=== PATIENT | female | born 1985 | race Caucasian/White ===

== ENCOUNTER 2024-05-13 22:42 | Emergency (ER) | payer OTHER ==
[2024-05-13 22:50] VITALS: BP 131/85; PULSE 87; RESP 20; TEMP 97.7; BMI 28.3
[2024-05-13] MEDS ORDERED: LIDOCAINE 5% TOPICAL PATCH ONE (23:24)
[2024-05-13] MEDS ORDERED: ACETAMINOPHEN 500 MG TABLET (FP) ONE (23:26)
[2024-05-13] MEDS: LIDOCAINE 5% TOPICAL PATCH TP ONE (23:30)
[2024-05-13] MEDS: ACETAMINOPHEN 500 MG TABLET (FP) PO ONE (23:31)
[2024-05-13] MEDS: LIDOCAINE PATCH REMOVAL MC SCH (23:31)
[2024-05-14] MEDS ORDERED: KETOROLAC TROMETHAMINE 30 MG/1 ML VIAL ONE (00:06)
[2024-05-14] MEDS: KETOROLAC TROMETHAMINE 30 MG/1 ML VIAL IM ONE (00:15)
== END 2024-05-14 00:37 | disposition home or self-care (01) ==
LOC: JER 22:42
PROC: 3E0233Z Introduction of Anti-inflammatory into Muscle, Percutaneous Approach (ICD-10-PCS; principal; 2024-05-13)
DX: M62.838 Other muscle spasm (principal); M54.2 Cervicalgia
CPT/HCPCS: 99284-25

== ENCOUNTER 2024-07-24 03:19 | Emergency (ER) | payer OTHER ==
[2024-07-24 03:24] VITALS: BP 125/76; PULSE 93; RESP 16; TEMP 98.1; BMI 26.9
== END 2024-07-24 04:33 | disposition home or self-care (01) ==
LOC: JER 03:19
DX: H93.12 Tinnitus, left ear (principal)
CPT/HCPCS: 99282-25

== ENCOUNTER 2024-10-07 07:05 | Day surgery (SDC) | payer OTHER ==
[2024-10-05 13:43] VITALS: BMI 27.4
[2024-10-07] MEDS ORDERED: ACETAMINOPHEN 500 MG TABLET (FP) PO PRN (09:09)
[2024-10-07 09:52] VITALS: RESP 20
[2024-10-07] MEDS: DEXAMETHASONE SOD PHOSPHATE 10 MG/1 ML VIAL IVPUSH ONE ×3 (10:47)
[2024-10-07] MEDS: LIDOCAINE HCL 1% PRESERVATIVE FREE - 30ML VIAL IJ ONE ×2 (10:47)
[2024-10-07] MEDS: IOHEXOL 180 MG/1 ML ML IJ ONE ×3 (10:47)
[2024-10-07 11:30] VITALS: BP 107/66; PULSE 98; TEMP 97.5
== END 2024-10-07 12:10 | disposition home or self-care (01) ==
LOC: JASU-SURG 07:05
PROVIDERS: ATTEND Pain Medicine Pain Medicine
PROC: 3E0R3BZ Introduction of Anesthetic Agent into Spinal Canal, Percutaneous Approach (ICD-10-PCS; 2024-10-07)
PROC: 3E0R33Z Introduction of Anti-inflammatory into Spinal Canal, Percutaneous Approach (ICD-10-PCS; principal; 2024-10-07 10:30)
DX: M54.12 Radiculopathy, cervical region (principal)
CPT/HCPCS: 76000-TC-FY; 81025; J1100

== ENCOUNTER 2025-01-21 06:13 | Day surgery (SDC) | payer OTHER ==
[2025-01-21] MEDS ORDERED: LIDOCAINE HCL/PF 1% SDV 5ML VIAL ONE (07:17)
[2025-01-21] MEDS ORDERED: BUPIVACAINE HCL/PF 0.5% (5MG/ML) 10 ML VIAL ONE (07:17)
[2025-01-21 12:49] VITALS: RESP 18
[2025-01-21 15:55] VITALS: BP 123/72; PULSE 86; TEMP 97.7
== END 2025-01-21 13:05 | disposition home or self-care (01) ==
LOC: JASU-SURG 06:13
PROVIDERS: ATTEND Pain Medicine Pain Medicine
PROC: 3E0T33Z Introduction of Anti-inflammatory into Peripheral Nerves and Plexi, Percutaneous Approach (ICD-10-PCS; 2025-01-21)
PROC: 3E0T3BZ Introduction of Anesthetic Agent into Peripheral Nerves and Plexi, Percutaneous Approach (ICD-10-PCS; principal; 2025-01-21 12:24)
DX: M47.812 Spondylosis without myelopathy or radiculopathy, cervical region (principal)
CPT/HCPCS: 76000-TC-FY